=== PATIENT | female | born 1980 | race American Indian/Alaskan Native ===

== ENCOUNTER 2024-12-01 14:26 | Emergency (ER) | payer SELFPAY ==
[2024-12-01 14:45] VITALS: BP 131/83; PULSE 94; RESP 18; TEMP 37.4; O2SAT 99; BMI 34.2
--- NOTE | 2024-12-01 14:53 | XR_ITS ---
Examination: CT abdomen and pelvis without contrast. Coronal 3-D reconstructions. Sagittal 2-D reconstructions. Date and time of exam:December 01, 2024 1547 hours INDICATIONS: Onset right-sided flank pain today CTDI: vol (mGy): 7.89 DLP: (mGycm): 148 Technique: Axial images of the abdomen have been obtained, 3 mm slice thickness Intravenous contrast material has not been administered. Low dose protocols were performed. One or more of the following dose reduction techniques were used; automated exposure control, adjustment of the mA and/or KV according to patient size, use of iterative reconstruction technique. Findings: Multiple small liver cysts No splenic lesion No pancreatic or adrenal mass No renal or ureteral calculi, no hydronephrosis Aorta normal size No bowel obstruction Normal appendix No diverticulitis Anteverted uterus with low-density in the cervix which may represent cysts Bladder intact IMPRESSION: No renal or ureteral calculi, no hydronephrosis Normal appendix No bowel obstruction or diverticulitis Recommend pelvic sonography to exclude small cervical mass
--- NOTE | 2024-12-01 14:53 | PD.EDRME ---
Rapid Medical Screening Exam RME Arrival date/time: 12/01/24 14:26 44-year-old female with no known medical history presents to the emergency room with a chief complaint of right-sided flank pain that radiates down to her right groin, nausea, vomiting x 4 days I have greeted and performed a focused initial assessment of this patient. A comprehensive ED assessment and evaluation of the patient, analysis of all test results, and completion of the medical decision making process will be conducted by additional ED providers. Chief Complaint: Abdominal Pain Vital signs: Vital Signs Temperature 99.4 F 12/01/24 14:45 Pulse Rate 94 12/01/24 14:45 Respiratory Rate 18 12/01/24 14:45 Blood Pressure 131/83 H 12/01/24 14:45 Pulse Oximetry (%) 99 12/01/24 14:45 Oxygen Delivery Method Room Air 12/01/24 14:45 Vital signs reviewed by provider: Yes
[2024-12-01] MEDS: ACETAMINOPHEN 325 MG TABLET 650 MG PO (15:06)
[2024-12-01] MEDS: ONDANSETRON ODT 4 MG TABRAP PO (15:06)
[2024-12-01 15:20] LABS: Collection Type, Urine Clean Catch
[2024-12-01 15:31] LABS: Basophils % (Auto) 0 % (0-2.5); Eosinophils % (Auto) 0 % (0-10); Hematocrit 33.7 % (36.0-46.0); Hemoglobin 11.5 g/dL (12.0-16.0); Immature Granulocytes % (Auto) 0 % (0-0); Immature Granulocytes Auto 0.02 Thou/mm3 (0.00-0.00); Lymphocytes # (Auto) 0.3 Thou/mm3 (1.0-4.8); Lymphocytes % (Auto) 6 % (10-50); Mean Corpuscular HGB Conc 34.1 g/dl (31.0-37.0); Mean Corpuscular Hemoglobin 26.8 pg (25.0-35.0); Mean Corpuscular Volume 79 fL (80-100); Monocytes # (Auto) 0.5 Thou/mm3 (0.0-0.8); Monocytes % (Auto) 9 % (0-12); Neutrophils # (Auto) 4.6 Thou/mm3 (1.8-7.7); Neutrophils % (Auto) 84 % (37-80); Nucleated Red Blood Cell % 0 /100 WBC (0); Platelet Count 214 Thou/mm3 (140-440); RDW Standard Deviation 39.8 fL (36.4-46.3); Red Blood Count 4.29 Miln/mm3 (4.00-5.20); White Blood Count 5.5 Thou/mm3 (3.6-11.0)
[2024-12-01 15:39] LABS: HCG Qualitative,Urine Negative
[2024-12-01 15:41] LABS: Bacteria,Urine 1+; Bilirubin,Urine Negative (Negative); Blood,Urine Trace (Negative); Clarity,Urine Turbid (Clear/Hazy); Color,Urine Lt-Yellow (Lt Yel-Yel); Glucose, Urine Negative (Negative); Ketones,Urine 1+ (Negative); Leukocyte Esterase,Urine Negative (Negative); Nitrite,Urine Negative (Negative); PH,Urine 6.5 (5.0-7.0); Protein,Urine Trace (Neg - Trace); RBC,Urine 20 /hpf (0-3); Specific Gravity,Urine 1.021 (1.001-1.035); Squamous Epithelial Cell,Urine 20 /hpf (0-5); Urobilinogen,Urine Negative mg/dL (0.0-1.0); WBC,Urine 2 /hpf (0-5)
[2024-12-01 15:41] LABS: Alanine Aminotransferase 23 U/L (10-49); Albumin, Serum 4.3 gm/dL (3.5-5.0); Albumin/Globulin Ratio 1.6 (1.2-2.2); Alkaline Phosphatase 73 U/L (46-116); Anion Gap 6 (7-16); Aspartate Amino Transferase 23 U/L (0-34); BUN/Creatinine Ratio 10 Ratio (12-20); Bilirubin,Total 0.3 mg/dL (0.3-1.2); Blood Urea Nitrogen 6 mg/dL (9-23); Calcium 8.3 mg/dL (8.3-10.6); Calcium (Corrected) 8.3 mg/dL (8.5-10.1); Carbon Dioxide 26.8 mMol/L (20.0-31.0); Chloride 103 mMol/L (98-107); Creatinine (Component) 0.6 mg/dL (0.6-1.3); Estimated Creatinine Clearance 110.4 mL/min (>60); Globulin 2.7 gm/dL (2.3-3.5); Glucose 104 mg/dL (74-106); Lipase 30 U/L (12-53); Osmolality,Calculated 269 (275-295); Potassium 3.5 mMol/L (3.4-5.1); Sodium 136 mMol/L (136-145); eGFR > 60 See Note
--- NOTE | 2024-12-01 16:54 | EDNOTE_ITS ---
ED Abdominal Pain RME/HPI General Chief Complaint: Abdominal Pain Stated complaint: RIGHT FLANK PAIN X THURSDAY, VOMITNG , FEVER, CHILL Arrival date/time: 12/01/24 14:26 Limitations: no limitations RME / HPI RME / HPI narrative: 12/01/24 14:26 44-year-old female with no known medical history presents to the emergency room with a chief complaint of right-sided flank pain that radiates down to her right groin, nausea, vomiting x 4 days I have greeted and performed a focused initial assessment of this patient. A comprehensive ED assessment and evaluation of the patient, analysis of all test results, and completion of the medical decision making process will be conducted by additional ED providers. DR. DENISE MAIN ED EVALUATION: 44 year old female with history of asthma, s/p cholecystectomy presents to the ED for evaluation of right flank pain beginning 4 days ago and worsening in the last 3 days. Described as aching in sensation, located most to the rigth flank without radiation, rating as moderate. Accompanied by nausea and vomiting. Additionally reports she has been coughing. Patient mentioned since her gallbladder removal she is not able to eat certain foods but has not had similar pain before. Denies fevers, chills, chest pain, shortness of breath, diarrhea, constipation, or urinary symptoms. Related Data Previous Rx's ?Medication ?Instructions ?Recorded ibuprofen 600 mg tablet 600 mg PO QID PRN pain #30 t abs 02/11/18 ondansetron 4 mg disintegrating 4 mg PO QID PRN nausea and 02/11/18 tablet vomiting #10 tabs oxycodone-acetaminophen 5 mg-325 1 tab PO Q6H PRN pain #10 tabs 02/11/18 mg tablet cyclobenzaprine 10 mg tablet 10 mg PO Q8H PRN muscle s pasm / 09/21/18 pain #14 tabs meloxicam 15 mg tablet (Mobic) 15 mg PO QDAY #10 tabs 09/21/18 ibuprofen 600 mg tablet 600 mg PO Q8H PRN fever or p ain 01/23/24 #20 tabs Allergies Allergy/AdvReac Type Severity Reaction Status Date / Time No Known Allergies Allergy Verified 12/01/24 14:30 Review of Systems Review of Systems Narrative Review of Systems: GEN: No fever, no chills, no weight loss EYES: No discharge, no visual changes, no pain HEENT: No ear pain, no congestion, no sore throat PULM: No shortness of breath, + cough, no congestion CV: No chest pain, no dyspnea on exertion, no palpitations GI: +N/V, no diarrhea, +pain, no constipation : No frequency, no urgency, no dysuria MUSC/SKEL: No joint pain, no back pain SKIN: No rash NEURO: No weakness, no headache Past Medical History Past Medical History CARDIAC: Negative Cardiac Disorders or Congestive Heart Failure RESPIRATORY: Positive Asthma; Negative Chronic Obstructive Pulmonary Disease (COPD) GENITOURINARY: Negative Renal Disease ENDOCRINE: Negative Diabetes Mellitus Type 1 or Diabetes Mellitus Type 2 HEMATOLOGIC: Negative Sickle Cell Disease Social History SMOKING STATUS: Never smoker ED Exam General Limitations: Present no limitations General appearance: Present alert, in no apparent distress, obese and other (appears fatigued) Head Head exam: Present atraumatic, normocephalic and normal inspection Eye Eye exam: Present normal appearance, PERRL and EOMI ENT ENT exam: Present normal exam, normal oropharynx and mucous membranes moist Neck Neck exam: Present normal inspection, full ROM and trachea midline Chest Chest inspection: Present normal inspection and symmetric chest wall rise Respiratory Respiratory exam: Present normal lung sounds bilaterally Cardiovascular Cardiovascular exam: Present regular rate, normal rhythm and normal heart sounds Abdominal Exam Abdominal exam: Present soft and normal bowel sounds Extremities Exam Extremities exam: Present normal inspection and full ROM Back Exam Back exam: Present normal inspection and full ROM Neurological Exam Neurological exam: Present alert, oriented X3 and CN II-XII intact Psychiatric Psychiatric exam: Present normal affect and normal mood Skin Skin exam: Present warm, dry, intact and normal color Course Quality Measures none Orders Category Date Time Status CT abdomen pelvis wo con Stat Exams 12/01/24 14:53 Completed CBC Stat Lab 12/01/24 15:13 Completed CMP [Comprehensive Metabolic Panel] Stat Lab 12/01/24 15:13 Completed HCG Qualitative,Urine Stat Lab 12/01/24 15:09 Completed Lipase Stat Lab 12/01/24 15:13 Completed UA [Urinalysis] Stat Lab 12/01/24 15:09 Completed Urine Culture Stat Lab 12/01/24 15:09 Received Acetaminophen Tab [Tylenol Tab] Med 12/01/24 14:53 Discontinued 650 mg PO X1 ONE Ondansetron Odt [Zofran Odt] Med 12/01/24 14:55 Discontinued 4 mg PO X1 ONE Vital Signs Vital signs: Vital Signs Temperature 99.4 F 12/01/24 14:45 Pulse Rate 94 12/01/24 14:45 Respiratory Rate 18 12/01/24 14:45 Blood Pressure 131/83 H 12/01/24 14:45 Pulse Oximetry (%) 99 12/01/24 14:45 Oxygen Delivery Method Room Air 12/01/24 14:45 Pulse ox is 99% on room air which is adequate. Abdominal Pain MDM MDM Narrative MDM Narrative:: Rochelle Mckenzie am scribing for and in the presence of Dr. Denise. Patient data External records reviewed:: [facility] previous records (I reviewed ED visit on 01/23/2024 ) Clinical information provided by:: patient Social determinants that could affect healthcare access:: none Patient has the following chronic illnesses:: asthma, s/p cholecystectomy How is presenting disease/condition affected by chronic disease/condition?: exacerbated by Evaluation data The following diagnostics were reviewed and interpreted by me:: lab results and radiology exam(s) Lab and/or radiology exams considered but not ordered:: None Interpretation Summary: Ordering Physician: Franco Fletcher Date of Service: 12/01/24 Procedure(s): CT abdomen pelvis wo con Accession Number(s): [id number] cc: Franco Fletcher; Harish Jones MD; NO PRIMARY/FAMILY,PHYSICIAN~ Examination: CT abdomen and pelvis without contrast. Coronal 3-D reconstructions. Sagittal 2-D reconstructions. Date and time of exam:December 01, 2024 1547 hours INDICATIONS: Onset right-sided flank pain today CTDI: vol (mGy): 7.89 DLP: (mGycm): 148 Technique: Axial images of the abdomen have been obtained, 3 mm slice thickness Intravenous contrast material has not been administered. Low dose protocols were performed. One or more of the following dose reduction techniques were used; automated exposure control, adjustment of the mA and/or KV according to patient size, use of iterative reconstruction technique. Findings: Multiple small liver cysts No splenic lesion No pancreatic or adrenal mass No renal or ureteral calculi, no hydronephrosis Aorta normal size No bowel obstruction Normal appendix No diverticulitis Anteverted uterus with low-density in the cervix which may represent cysts Bladder intact IMPRESSION: No renal or ureteral calculi, no hydronephrosis Normal appendix No bowel obstruction or diverticulitis Recommend pelvic sonography to exclude small cervical mass Dictated By: Harish Jones MD Signed By: <Electronically signed by Harish Jones MD in OV> 12/01/24 1603 Medications / Prescriptions Medications or Prescriptions considered but not ordered:: None Medication administrations:: Medication Administration History Discontinued Medications Acetaminophen (Acetaminophen 325 Mg Tablet) 650 mg PO X1 ONE Stop: 12/01/24 14:54 Last Admin: 12/01/24 15:06 Dose: 650 mg Documented By: Ondansetron HCl (Ondansetron Odt 4 Mg Tabrap) 4 mg PO X1 ONE; Protocol Stop: 12/01/24 14:56 Last Admin: 12/01/24 15:06 Dose: 4 mg Documented By: See above Consultations Consultation(s) initiated? (list below): No Diagnosis Differential diagnosis abdominal pain: abdominal pain, calculus of kidney, constipation and gastroenteritis Most likely diagnosis given after review of the tests above:: Gastroenteritis Admission Indicated Admission indicated?: not indicated Admission Request Was there a request for admission?: No Disposition Plan Disposition Plan: Discharge Discharge Attestation Discharge Attestation: The patient and all family members were given an opportunity to ask questions and understood the discharge instructions. Discharge instructions specifically effects, indications for sooner follow up or return to the emergency department, and the expected course of current diagnosis. Patient condition: Stable Discharge Plan Plan Patient Disposition: HOME (Self Care) Prescriptions/Referrals Prescriptions/Med Rec: No Action cyclobenzaprine 10 mg tablet 10 mg PO Q8H PRN (Reason: muscle spasm / pain) Qty: 14 0RF meloxicam [Mobic] 15 mg tablet 15 mg PO QDAY Qty: 10 0RF ondansetron 4 mg tablet,disintegrating 4 mg PO QID PRN (Reason: nausea and vomiting) Qty: 10 0RF ibuprofen 600 mg tablet 600 mg PO QID PRN (Reason: pain) Qty: 30 0RF oxycodone-acetaminophen 5-325 mg tablet 1 tab PO Q6H MDD 4 PRN (Reason: pain) Qty: 10 0RF ibuprofen 600 mg tablet 600 mg PO Q8H PRN (Reason: fever or pain) Qty: 20 0RF Referrals: No Primary/Family,Physician [Primary Care Provider] - In 1 week Problem List Clinical Impression: Gastroenteritis Patient/Caregiver Discharge Instructions Education Materials: ED Gastroenteritis, Noninfectious Additional Instructions: Follow up with your PMD within 2-3 days for reassessment. Return if you develop any new or worsening symptoms. Print Language: Belarusian Stand Alone Forms: [facility] Award Info., Patient Portal Info Letter
== END 2024-12-01 18:05 | disposition home or self-care (01) ==
PROVIDERS: Nurse Practitioner Family; Emergency Provider Family Medicine
DX: K52.9 Noninfective gastroenteritis and colitis, unspecified (principal); R93.89 Abnormal findings on diagnostic imaging of other specified body structures
CPT/HCPCS: 36415; 74176; 80053; 81001; 81025; 83690; 85025; 87086; 99284; Q0162; A9270

== ENCOUNTER 2024-12-09 03:09 | Emergency (ER) | payer OTHER, SELFPAY ==
[2024-12-09 03:10] VITALS: BMI 34.0
--- NOTE | 2024-12-09 03:17 | EDNOTE_ITS ---
ED Headache RME/HPI General Chief Complaint: Headache Stated Complaint: HEADACHE FOR 4 DAYS, CHEST THIGHTNESS Arrival date/time: 12/09/24 03:09 RME / HPI RME / HPI Narrative: This section includes all my notes and documentations, including HPI, PE, and ED course. Kurt Mackey MD HPI: 44yo female here with multiple symptoms. She reports about 2-week history of worsening cough, productive cough, purulent sputum, and dyspnea. No fever. In the past few days, she reports severe headache and vomiting and upper abdominal pain. No other complaints. ROS: All negative except as documented in HPI. Physical Exam: General: Alert and oriented. In severe pain. Eyes: Conjunctivae and lids clear. PERRL. EOMI. ENT: No nasal congestion. Pharynx normal. TM normal bilaterally. Neck: Supple. Heart: RRR. Lungs: No respiratory distress. Moderately decreased air movement with wheezing. Abdomen: Soft with epigastric tenderness.. Normal bowel sounds. No distension. No rebound or guarding. Back: No CVA tenderness. Skin: Warm and dry. Neuro: Alert and oriented X 3. Cranial nerves II to XII grossly normal. No peripheral motor deficits. I reviewed all diagnostic test results. My interpretation of the EKG is sinus rhythm with no acute ST-T changes. Blood tests and urine tests unremarkable. COVID/influenza negative. Reports for GB ultrasound and head CT and chest/abdomen/pelvis CT reports pending. Treatment here included IV fluid, Zofran, Solu-Medrol, DuoNeb, and two Tylenol #3. At 6 AM on 12/08/2024, the care of the patient was transferred to Dr. FAM. Kurt Mackey MD Related Data Previous Rx's ?Medication ?Instructions ?Recorded ibuprofen 600 mg tablet 600 mg PO QID PRN pain #30 t abs 02/11/18 ondansetron 4 mg disintegrating 4 mg PO QID PRN nausea and 02/11/18 tablet vomiting #10 tabs oxycodone-acetaminophen 5 mg-325 1 tab PO Q6H PRN pain #10 tabs 02/11/18 mg tablet cyclobenzaprine 10 mg tablet 10 mg PO Q8H PRN muscle s pasm / 09/21/18 pain #14 tabs meloxicam 15 mg tablet (Mobic) 15 mg PO QDAY #10 tabs 09/21/18 ibuprofen 600 mg tablet 600 mg PO Q8H PRN fever or p ain 01/23/24 #20 tabs Allergies Allergy/AdvReac Type Severity Reaction Status Date / Time No Known Allergies Allergy Verified 12/09/24 03:10 Review of Systems Review of Systems Systems Reviewed: All systems reviewed, normal except as documented Past Medical History Past Medical History CARDIAC: Negative Cardiac Disorders or Congestive Heart Failure RESPIRATORY: Positive Asthma; Negative Chronic Obstructive Pulmonary Disease (COPD) GENITOURINARY: Negative Renal Disease ENDOCRINE: Negative Diabetes Mellitus Type 1 or Diabetes Mellitus Type 2 HEMATOLOGIC: Negative Sickle Cell Disease Social History SMOKING STATUS: Never smoker ED Exam Narrative Physical exam: As noted in HPI. Course Quality Measures none Orders Category Date Time Status Bedside COVID-19 Antigen Test NOW Care 12/09/24 03:19 Active Bedside Influenza A&B Antigen Test NOW Care 12/09/24 03:19 Completed EKG (ED ONLY) *Do not use* NOW Care 12/09/24 03:19 Completed Saline [Insert IV] NOW Care 12/09/24 03:[address] chest abdomen pelvis wo Stat Exams 12/09/24 03:[address] head/brain wo con Stat Exams 12/09/24 03:19 Ordered EKG (ED Only) Stat Exams 12/09/24 03:19 Draft US gall bladder Stat Exams 12/09/24 03:48 Taken Amylase Stat Lab 12/09/24 03:27 Completed Bilirubin,Direct Stat Lab 12/09/24 03:27 Completed CBC Stat Lab 12/09/24 03:27 Completed CMP [Comprehensive Metabolic Panel] Stat Lab 12/09/24 03:27 Completed Free T4 (Free Thyroxine) Stat Lab 12/09/24 03:27 Completed HCG Qualitative,Urine Stat Lab 12/09/24 03:28 Completed HCG,Qualitative Serum Stat Lab 12/09/24 03:27 Completed Lipase Stat Lab 12/09/24 03:27 Completed Magnesium Stat Lab 12/09/24 03:27 Completed TSH [Thyroid Stimulating Hormone] Stat Lab 12/09/24 03:27 Completed Troponin I Stat Lab 12/09/24 03:27 Completed UA, C/S IF [Urinalysis, C/S if Indicated] Stat Lab 12/09/24 03:28 Completed ACETAMINOPHEN w/COD 300-30 [Tylenol w/Cod #3] Med 12/09/24 03:20 Discontinued 2 tab PO X1 ONE Albuterol/Ipratr Rt Trini [Duoneb Rt Trini] Med 12/09/24 03:20 Discontinued 3 ml INH X1 ONE MethylPREDNISolone.* [SoluMEDROL Inj] Med 12/09/24 03:37 Discontinued 125 mg IVP X1 ONE Ondansetron Inj [Zofran Inj] Med 12/09/24 03:38 Discontinued 4 mg IV X1 ONE Ondansetron Odt [Zofran Odt] Med 12/09/24 03:20 Discontinued 4 mg PO X1 ONE Sodium Chloride 0.9% 1000 ml [Ns] 1,000 ml Med 12/09/24 03:37 Discontinued IV 999 mls/hr predniSONE Med 12/09/24 03:20 Discontinued 60 mg PO X1 ONE Vital Signs Vital signs: Vital Signs Temperature 98.4 F 12/09/24 03:18 Pulse Rate 64 12/09/24 03:18 Respiratory Rate 19 12/09/24 03:18 Blood Pressure 166/83 H 12/09/24 03:18 Pulse Oximetry (%) 99 12/09/24 03:18 Oxygen Delivery Method Room Air 12/09/24 03:18 Headache MDM Narrative MDM Narrative:: Scribe Attestation: 12/09/24 - I, Lilliam Tran am scribing for and in the presence of Dr. Mackey. 44yo female here with multiple symptoms. She reports about 2-week history of worsening cough, productive cough, purulent sputum, and dyspnea. No fever. In the past few days, she reports severe headache and vomiting and upper abdominal pain. No other complaints. Patient data External records reviewed:: [facility] previous records (Per chart review, patient was seen here on 12/01/24 for gastroenteritis.) Clinical information provided by:: patient Social determinants that could affect healthcare access:: none Patient has the following chronic illnesses:: asthma How is presenting disease/condition affected by chronic disease/condition?: uneffected by Evaluation data The following diagnostics were reviewed and interpreted by me:: lab results, radiology exam(s) and EKG tracing(s) (My interpretation of the EKG is: Sinus rhythm (61 bpm) with no acute ST-T changes. Kurt Mackey MD) Lab and/or radiology exams considered but not ordered:: none Interpretation Summary: Complete diagnostic test results pending. Medications / Prescriptions Medications or Prescriptions considered but not ordered:: none Medication administrations:: Medication Administration History Discontinued Medications Acetaminophen/Codeine Phosphate (Acetaminophen W/Cod 300-30 Tablet) 2 tab PO X1 ONE Stop: 12/09/24 03:21 Last Admin: 12/09/24 04:57 Dose: 2 tab Documented By: THALIA Albuterol/Ipratropium (Albuterol/Ipratropium (Duoneb) Rt Trini 3 Ml Nebu) 3 ml INH X1 ONE Stop: 12/09/24 03:21 Last Admin: 12/09/24 03:55 Dose: 3 ml Documented By: ZIYAD Sodium Chloride (Ns) 1,000 mls @ 999 mls/hr IV .Q1H1M ONE Stop: 12/09/24 04:37 Last Infusion: 12/09/24 05:04 Dose: Infused Documented By: Admin: 12/09/24 04:03 Dose: 999 mls/hr Documented By: THALIA Methylprednisolone Sodium Succinate (Methylprednisolone Sod Succ 62.5 Mg/Ml 2ml Vial) 125 mg IVP X1 ONE Stop: 12/09/24 03:38 Last Admin: 12/09/24 04:03 Dose: 125 mg Documented By: THALIA Ondansetron HCl (Ondansetron Odt 4 Mg Tabrap) 4 mg PO X1 ONE; Protocol Stop: 12/09/24 03:21 Last Admin: 12/09/24 04:24 Dose: Not Given Documented By: EF Non-Admin Reason: Cancelled by Provider Ondansetron HCl (Ondansetron Inj 2 Mg/Ml Inj 2 Ml) 4 mg IV X1 ONE; Protocol Stop: 12/09/24 03:39 Last Admin: 12/09/24 04:04 Dose: 4 mg Documented By: EF Prednisone (Prednisone 20 Mg Tablet) 60 mg PO X1 ONE Stop: 12/09/24 03:21 Last Admin: 12/09/24 04:24 Dose: Not Given Documented By: EF Non-Admin Reason: Cancelled by Provider NS, Solumedrol, Zofran, Tylenol with Codeine, Duoneb Consultations Consultation(s) initiated? (list below): No Diagnosis Differential diagnosis headache: migraine, tension headache, subarachnoid hemorrhage, headache, postconcussion syndrome and other (COVID, influenza, pneumonia, biliary colic, GERD, PUD, gastritis) Most likely diagnosis given after review of the tests above:: Complete diagnostic test results pending. Admission Indicated Admission indicated?: not indicated Explain why admission is indicated or not indicated:: Complete diagnostic test results pending. Admission Request Was there a request for admission?: No Disposition Plan Disposition Plan: other (specify) (Care of the patient was transferred to Dr. FAM.) Discharge Plan Prescriptions/Referrals Prescriptions/Med Rec: No Action cyclobenzaprine 10 mg tablet 10 mg PO Q8H PRN (Reason: muscle spasm / pain) Qty: 14 0RF meloxicam [Mobic] 15 mg tablet 15 mg PO QDAY Qty: 10 0RF ondansetron 4 mg tablet,disintegrating 4 mg PO QID PRN (Reason: nausea and vomiting) Qty: 10 0RF ibuprofen 600 mg tablet 600 mg PO QID PRN (Reason: pain) Qty: 30 0RF oxycodone-acetaminophen 5-325 mg tablet 1 tab PO Q6H MDD 4 PRN (Reason: pain) Qty: 10 0RF ibuprofen 600 mg tablet 600 mg PO Q8H PRN (Reason: fever or pain) Qty: 20 0RF Referrals: No Primary/Family,Physician [Primary Care Provider] - In 1 week Problem List Clinical Impression: Headache, Cough, Abdominal pain Patient/Caregiver Discharge Instructions Print Language: Mohawk
[2024-12-09 03:18] VITALS: BP 166/83; PULSE 64; RESP 19; TEMP 36.9; O2SAT 99
--- NOTE | 2024-12-09 03:19 | EKG_ITS ---
[facility] (Formerly [facility])[3] Test Date: 2024-12-09 Pat Name: KATI NAJERA Department: Room: - Gender: Female Product Advisor: : 1980 Requested By: Kurt Guido Order Number: [id number] Reading MD: Kurt Guido Measurements Intervals [place] Rate: 61 P: 59 WV: 139 QRS: 32 QRSD: 78 T: 48 QT: 463 QTc: 467 Interpretive Statements SINUS RHYTHM No previous ECG available for comparison /store/S0/[id number]/ecg/[id number].pdf
--- NOTE | 2024-12-09 03:19 | XR_ITS ---
Examination: CT chest, without intravenous contrast. CT abdomen, without intravenous contrast. CT pelvis, without intravenous contrast. 2-D sagittal and coronal reconstructions. 3-D reconstructions. Date and time of exam:December 09, 2024 0516 hours INDICATIONS: Shortness of breath generalized abdominal pain today CTDI vol (mgy) 16.5 DLP (MGycm)1000 Technique: Multiple CT images, 3.0 mm slice thickness, obtained chest, abdomen, pelvis, with the high-resolution 64 slice scanner.. Sagittal and coronal 2-D reconstructions are obtained. 3-D reconstructions Low dose protocols were performed. One or more of the following dose reduction techniques were used; automated exposure control, adjustment of the mA and/or KV according to patient size, use of iterative reconstruction technique. Findings: 14 mm right thyroid nodule No thoracic aortic aneurysmal dilatation Pulmonary artery segments are not enlarged. No paratracheal tracheobronchial or bronchopulmonary adenopathy No pneumonia or pulmonary edema Calcified granuloma in the right upper lobe Small liver cysts Absent gallbladder No pancreatic or adrenal mass No renal or ureteral calculi, no hydronephrosis Normal appendix 33 mm right adnexal cyst Anteverted uterus with thickened endometrial stripe, small uterine area of probable fibroid degeneration Urinary bladder is intact IMPRESSION: 14 mm right thyroid nodule, consider dedicated thyroid sonography follow-up No pneumonia, pulmonary edema or pleural disease Recommend hepatic sonography to confirm hepatic cysts 33 mm right adnexal cyst, recommend pelvic sonography follow-up
--- NOTE | 2024-12-09 03:19 | XR_ITS ---
Examination: CT brain head without contrast. 2-D sagittal coronal reconstructions Date and time of exam:December 09, 2024 0515 hours INDICATIONS: Onset severe headache today since CTDI: vol (mGy):52 DLP: (mGycm):1059 Technique: Multiple CT axial sections of the brain have been obtained, 5 mm slice thickness. Contrast has not been administered. 2-D sagittal, coronal reconstructions have been obtained Low dose protocols were performed. One or more of the following dose reduction techniques were used; automated exposure control, adjustment of the mA and/or KV according to patient size, use of iterative reconstruction technique. Findings: No significant ventricular enlargement. Intra-axial or extra-axial hemorrhage density is not seen. No mass effect or midline shift Basal cisterns are not remarkable. Fourth ventricle is midline. Cranial vault intact. Impression: Negative for acute hemorrhage, mass effect or midline shift
[2024-12-09 03:41] LABS: Basophils % (Auto) 1 % (0-2.5); Eosinophils # (Auto) 0.1 Thou/mm3 (0.0-0.5); Eosinophils % (Auto) 1 % (0-10); Hemoglobin 12.1 g/dL (12.0-16.0); Immature Granulocytes % (Auto) 0 % (0-0); Immature Granulocytes Auto 0.02 Thou/mm3 (0.00-0.00); Lymphocytes % (Auto) 30 % (10-50); Mean Corpuscular HGB Conc 32.7 g/dl (31.0-37.0); Mean Corpuscular Hemoglobin 26.2 pg (25.0-35.0); Mean Corpuscular Volume 80 fL (80-100); Monocytes # (Auto) 0.4 Thou/mm3 (0.0-0.8); Monocytes % (Auto) 6 % (0-12); Neutrophils # (Auto) 4.3 Thou/mm3 (1.8-7.7); Neutrophils % (Auto) 63 % (37-80); Nucleated Red Blood Cell % 0 /100 WBC (0); Platelet Count 349 Thou/mm3 (140-440); RDW Standard Deviation 40.3 fL (36.4-46.3); Red Blood Count 4.61 Miln/mm3 (4.00-5.20); White Blood Count 6.8 Thou/mm3 (3.6-11.0)
[2024-12-09 03:42] LABS: Collection Type, Urine Clean Catch
[2024-12-09 03:48] LABS: Bilirubin,Urine Negative (Negative); Blood,Urine Negative (Negative); Clarity,Urine Clear (Clear/Hazy); Color,Urine Lt-Yellow (Lt Yel-Yel); Culture Indicated,Urine Not Indicated; Glucose, Urine Trace (Negative); Hyaline Casts,Urine < 1 /hpf (0-1); Ketones,Urine Negative (Negative); Leukocyte Esterase,Urine Negative (Negative); Nitrite,Urine Negative (Negative); Protein,Urine Negative (Neg - Trace); RBC,Urine 3 /hpf (0-3); Specific Gravity,Urine 1.016 (1.001-1.035); Squamous Epithelial Cell,Urine 1 /hpf (0-5); Urobilinogen,Urine Negative mg/dL (0.0-1.0); WBC,Urine 1 /hpf (0-5)
--- NOTE | 2024-12-09 03:48 | XR_ITS ---
Examination: Abdomen sonogram, Limited Date and time of exam: December 09, 2024 0438 hours Technique: Real-time head scale transabdominal sonographic images of the upper abdomen obtained. Findings: Absent gallbladder Normal common bile duct 0.5 cm Pancreatic head 2.1 cm Liver 15.3 cm Fatty liver Normal hepatopedal portal venous flow Patent IVC IMPRESSION: Normal common bile duct Fatty liver
[2024-12-09] MEDS: ALBUTEROL/IPRATROPIUM (Duoneb) RT SOL 3 ML NEBU INH (03:55)
[2024-12-09 03:56] LABS: HCG Qualitative,Urine Negative
[2024-12-09 03:59] VITALS: PULSE 65; RESP 20; O2SAT 100
[2024-12-09 03:59] LABS: Alanine Aminotransferase 27 U/L (10-49); Albumin, Serum 4.2 gm/dL (3.5-5.0); Albumin/Globulin Ratio 1.4 (1.2-2.2); Alkaline Phosphatase 90 U/L (46-116); Amylase 45 U/L (30-118); Anion Gap 9 (7-16); Aspartate Amino Transferase 22 U/L (0-34); BUN/Creatinine Ratio 12 Ratio (12-20); Bilirubin,Direct 0.1 mg/dL (0.0-0.3); Bilirubin,Total 0.5 mg/dL (0.3-1.2); Blood Urea Nitrogen 7 mg/dL (9-23); Carbon Dioxide 24.6 mMol/L (20.0-31.0); Chloride 107 mMol/L (98-107); Creatinine (Component) 0.6 mg/dL (0.6-1.3); Free T4 (Free Thyroxine) 1.23 ng/dL (0.89-1.76); Glucose 136 mg/dL (74-106); Lipase 30 U/L (12-53); Magnesium 2.4 mg/dL (1.6-2.6); Osmolality,Calculated 281 (275-295); Potassium 3.8 mMol/L (3.4-5.1); Sodium 141 mMol/L (136-145); Total Protein 7.2 gm/dL (5.7-8.2); Troponin I < 0.002 ng/mL (0.0-0.045); eGFR > 60 See Note
[2024-12-09] MEDS: MethylPREDNISolone SOD SUCC 62.5 MG/ML 2ML VIAL 125 MG IVP (04:03)
[2024-12-09] MEDS: SODIUM CHLORIDE 0.9% 1000 ML 1,000 ML 999 ML IV (04:03)
[2024-12-09] MEDS: ONDANSETRON INJ 2 MG/ML INJ 2 ML 4 MG IV (04:04)
[2024-12-09 04:54] LABS: HCG,Qualitative Serum Negative
[2024-12-09] MEDS: ACETAMINOPHEN w/COD 300-30 TABLET 2 TAB PO (04:57)
[2024-12-09 05:34] VITALS: BP 155/77; PULSE 68; RESP 18; TEMP 36.8; O2SAT 100
--- NOTE | 2024-12-09 05:41 | PRELIM_ITS ---
Gallbladderultrasound. December 09, 2024 0438 hours Clinical history: RUQ tenderness Technique: Grayscale and color flow images of the right upper quadrant are provided. Hepatic and portal veins were also imaged with color flow images. Comparison:No prior study is available for comparison. Findings: The liver demonstrates mild coarseechogenicity. There are two cysts in the right hepatic lobe measuring 2.5 and 1.6 cm.No intrahepatic biliary ductal dilatation. The gallbladder is surgically absent.The common bile duct is normal in caliber at 5 mm. The main portal vein is patent and demonstrates hepatopetal flow.The pancreas is unremarkable to the extent visualized. Impression: Multiple hepatic cysts. Report Electronically Signed By: Yoselin Ruggiero 12/09/2024 5:40:42 AM [EST]
--- NOTE | 2024-12-09 05:55 | PRELIM_ITS ---
CT scan of the head without intravenous contrast (axial sections with sagittal and coronal reformats). December 09, 2024 0514 hours Clinical History: severe headache Findings: No evidence of intracranial hemorrhage, mass effect or midline shift. The ventricles and CSF spaces are unremarkable. The calvarium is unremarkable. The mastoid air cells and the visualized paranasal sinuses are clear. Impression: No evidence of intracranial hemorrhage, mass effect or midline shift. Report Electronically Signed By: Yoselin Ruggiero 12/09/2024 5:53:56 AM [EST]
[2024-12-09] MEDS: PROMETHAZINE INJ 12.5 MG in SODIUM CHLORIDE 0.9% 50 ML 2.5 MG IV (06:36)
[2024-12-09 06:44] VITALS: BP 140/90; PULSE 74; RESP 15; O2SAT 98
--- NOTE | 2024-12-09 07:04 | PRELIM_ITS ---
CT scan of the chest, abdomen and pelvis without intravenous contrast (axial sections with sagittal and coronal reformats) December 09, 2024 0516 hours Clinical History: sob cp abd pain Comparison: No prior study is available for comparison. Findings: A 1.2cm calcification is noted in the superior segment of the right lower lung. A 3mm nodule is noted in the right upper lobe, likely nonspecific. Otherwise, the lungs are clear. There is no pleural effusion or pneumothorax. The aorta is unremarkable on this noncontrast study. No evidence of mediastinal mass or lymphadenopathy. There is no pericardial effusion. There are multiple well-defined hypodense lesions in the liver measuring up to 9.5mm. The liver otherwise is unremarkable on this noncontrast study. The gallbladder is surgically absent. The common bile duct is unremarkable. The spleen, pancreas, adrenals and kidneys are unremarkable on this noncontrast study. No evidence of bowel obstruction. The appendix is not definitively visualized; however, there is no evidence of inflammatory process in the right lower quadrant to suggest appendicitis. The urinary bladder is unremarkable. A 1cm noncalcified fibroid is noted in the uterine fundus. There is small amount of fluid in the uterine cavity. There are multiple cystic lesions in the cervix, likely representing Nabothian cysts. There is a homogeneous cyst in the right ovary measuring 3.4cm. The left ovary appears unremarkable. There is no free fluid or free air. The osseous structures are unremarkable. Impression: No evidence of acute intrathoracic, intraabdominal or pelvic pathology on this noncontrast study. Multiple well-defined hypodense lesions in the liver measuring up to 9.5mm. Recommend follow-up if indicated. Uterine fibroid. Free fluid in the uterine cavity. Nabothian cysts in the cervix. Recommend further evaluation with ultrasound. Other findings as described above. Report Electronically Signed By: Yoselin Ruggiero 12/09/2024 7:02:56 AM [EST]
[2024-12-09] MEDS: KETOROLAC INJ 30 MG/ML VIAL 15 MG IVP (07:35)
[2024-12-09 07:42] VITALS: BP 146/84; PULSE 80; RESP 19; TEMP 36.6; O2SAT 100
[2024-12-09 10:37] VITALS: BP 135/86; PULSE 77; RESP 18; TEMP 36.7; O2SAT 99
--- NOTE | 2024-12-09 10:50 | EDNOTE_ITS ---
<Statement entered by Kaela August MD - 12/20/24 06:19> As co-signing physician, I was present and available for consult prn. I concur with the plan and care as documented by the midlevel provider. Emergency Room Addendum Addendum Narrative: 0600: Care assumed from Dr. Mackey, the previous shift emergency physician. Past medical, surgical, social and family history reviewed. Vitals and home medications reviewed. I will assume the care of the patient at this time, pend ing radiology reports. Please refer to the emergency department record for history and examination from initial visit.?The following addendum documentation note is intended to reflect any pending information, findings, or radiology results not included in the patient?s initial chart. 1000: Patient reports feeling improved at this time. Patient remains clinically stable throughout the emergency department visit. We reviewed all the results, analysis, and treatment plans. Patient is amenable to discharge. Strict return precautions were outlined. Patient was discharged in stable condition. RADIOLOGY Ordering Physician: Kurt Mackey MD Date of Service: 12/09/24 Procedure(s): CT chest abdomen pelvis wo Accession Number(s): [id number] cc: Kurt Mackey MD; Harish Jones MD; NO PRIMARY/FAMILY,PHYSICIAN~ Examination: CT chest, without intravenous contrast. CT abdomen, without intravenous contrast. CT pelvis, without intravenous contrast. 2-D sagittal and coronal reconstructions. 3-D reconstructions. Date and time of exam:December 09, 2024 0516 hours INDICATIONS: Shortness of breath generalized abdominal pain today CTDI vol (mgy) 16.5 DLP (MGycm)1000 Technique: Multiple CT images, 3.0 mm slice thickness, obtained chest, abdomen, pelvis, with the high-resolution 64 slice scanner.. Sagittal and coronal 2-D reconstructions are obtained. 3-D reconstructions Low dose protocols were performed. One or more of the following dose reduction techniques were used; automated exposure control, adjustment of the mA and/or KV according to patient size, use of iterative reconstruction technique. Findings: 14 mm right thyroid nodule No thoracic aortic aneurysmal dilatation Pulmonary artery segments are not enlarged. No paratracheal tracheobronchial or bronchopulmonary adenopathy No pneumonia or pulmonary edema Calcified granuloma in the right upper lobe Small liver cysts Absent gallbladder No pancreatic or adrenal mass No renal or ureteral calculi, no hydronephrosis Normal appendix 33 mm right adnexal cyst Anteverted uterus with thickened endometrial stripe, small uterine area of probable fibroid degeneration Urinary bladder is intact IMPRESSION: 14 mm right thyroid nodule, consider dedicated thyroid sonography follow-up No pneumonia, pulmonary edema or pleural disease Recommend hepatic sonography to confirm hepatic cysts 33 mm right adnexal cyst, recommend pelvic sonography follow-up Dictated By: Harish Jones MD Signed By: <Electronically signed by Harish Jones MD in [place]>12/09/24 0737 ====== Ordering Physician: Kurt Mackey MD Date of Service: 12/09/24 Procedure(s): CT head/brain wo [facility] Accession Number(s): [id number] cc: Kurt Mackey MD; Harish Jones MD; NO PRIMARY/FAMILY,PHYSICIAN~ Examination: CT brain head without contrast. 2-D sagittal coronal reconstructions Date and time of exam:December 09, 2024 0515 hours INDICATIONS: Onset severe headache today since CTDI: vol (mGy):52 DLP: (mGycm):1059 Technique: Multiple CT axial sections of the brain have been obtained, 5 mm slice thickness. Contrast has not been administered. 2-D sagittal, coronal reconstructions have been obtained Low dose protocols were performed. One or more of the following dose reduction techniques were used; automated exposure control, adjustment of the mA and/or KV according to patient size, use of iterative reconstruction technique. Findings: No significant ventricular enlargement. Intra-axial or extra-axial hemorrhage density is not seen. No mass effect or midline shift Basal cisterns are not remarkable. Fourth ventricle is midline. Cranial vault intact. Impression: Negative for acute hemorrhage, mass effect or midline shift Dictated By: Harish Jones MD Signed By: <Electronically signed by Harish Jones MD in [place]>12/09/24 0714 ====== Ordering Physician: Kurt Mackey MD Date of Service: 12/09/24 Procedure(s): US gall bladder Accession Number(s): [id number] cc: Kurt Mackey MD; Harish Jones MD; NO PRIMARY/FAMILY,PHYSICIAN~ Examination: Abdomen sonogram, Limited Date and time of exam: December 09, 2024 0438 hours Technique: Real-time head scale transabdominal sonographic images of the upper abdomen obtained. Findings: Absent gallbladder Normal common bile duct 0.5 cm Pancreatic head 2.1 cm Liver 15.3 cm Fatty liver Normal hepatopedal portal venous flow Patent IVC IMPRESSION: Normal common bile duct Fatty liver Dictated By: Harish Jones MD Signed By: <Electronically signed by Harish Jones MD in [place]> 12/09/24 0922
== END 2024-12-09 10:37 | disposition home or self-care (01) ==
PROVIDERS: Emergency Medicine; Emergency Provider Emergency Medicine
DX: R51.9 Headache, unspecified (principal); R10.84 Generalized abdominal pain; E04.1 Nontoxic single thyroid nodule; K76.89 Other specified diseases of liver; K76.0 Fatty (change of) liver, not elsewhere classified
CPT/HCPCS: 36415; 70450; 71250; 74176; 76705; 80053; 81001; 81025; 82150; 82248; 83690; 83735; 84439; 84443; 84484; 84703; 85025; 87400; 87811; 93005; 94640; 96361; 96365; 96375; 99284; A9270; J1885; J2405; J2550; J2919; J7030

== ENCOUNTER → 2024-12-26 | Outpatient (CLI) | payer OTHER, SELFPAY ==
[2024-12-26 10:23] LABS: Basophils % (Auto) 0 % (0-2.5); Eosinophils # (Auto) 0.1 Thou/mm3 (0.0-0.5); Eosinophils % (Auto) 2 % (0-10); Hematocrit 34.4 % (36.0-46.0); Hemoglobin 11.1 g/dL (12.0-16.0); Immature Granulocytes % (Auto) 1 % (0-0); Immature Granulocytes Auto 0.04 Thou/mm3 (0.00-0.00); Lymphocytes # (Auto) 1.9 Thou/mm3 (1.0-4.8); Lymphocytes % (Auto) 27 % (10-50); Mean Corpuscular HGB Conc 32.3 g/dl (31.0-37.0); Mean Corpuscular Hemoglobin 26.3 pg (25.0-35.0); Mean Corpuscular Volume 82 fL (80-100); Monocytes # (Auto) 0.5 Thou/mm3 (0.0-0.8); Monocytes % (Auto) 7 % (0-12); Neutrophils # (Auto) 4.4 Thou/mm3 (1.8-7.7); Neutrophils % (Auto) 63 % (37-80); Nucleated Red Blood Cell % 0 /100 WBC (0); Platelet Count 351 Thou/mm3 (140-440); RDW Standard Deviation 45.1 fL (36.4-46.3); Red Blood Count 4.22 Miln/mm3 (4.00-5.20); White Blood Count 6.9 Thou/mm3 (3.6-11.0)
[2024-12-26 10:43] LABS: Alanine Aminotransferase 20 U/L (10-49); Albumin/Globulin Ratio 1.7 (1.2-2.2); Alkaline Phosphatase 52 U/L (46-116); Anion Gap 11 (7-16); Aspartate Amino Transferase 18 U/L (0-34); BUN/Creatinine Ratio 15 Ratio (12-20); Bilirubin,Total 0.3 mg/dL (0.3-1.2); Blood Urea Nitrogen 9 mg/dL (9-23); Calcium 8.5 mg/dL (8.3-10.6); Calcium (Corrected) 8.5 mg/dL (8.5-10.1); Carbon Dioxide 25.7 mMol/L (20.0-31.0); Cardiac Risk Estimate 5.8 RATIO (3.7-5.6); Chloride 105 mMol/L (98-107); Cholesterol 214 mg/dL (132-200); Creatinine (Component) 0.6 mg/dL (0.6-1.3); Free T3 3.3 pg/mL (2.3-4.2); Free T4 (Free Thyroxine) 1.14 ng/dL (0.89-1.76); Globulin 2.3 gm/dL (2.3-3.5); Glucose 87 mg/dL (74-106); HDL Cholesterol 37 mg/dL (40-60); LDL Cholesterol,Calculated 124 mg/dL (0-130); Osmolality,Calculated 280 (275-295); Sodium 142 mMol/L (136-145); Thyroid Stimulating Hormone 0.78 uIU/mL (0.55-4.78); Total Protein 6.3 gm/dL (5.7-8.2); Triglycerides 265 mg/dL (30-150); eGFR > 60 See Note
[2024-12-26 11:08] LABS: Glucose Estimated Average 103 mg/dL (80-131); Hemoglobin A1C 5.2 % Hgb (4.8-6.0)
== END | disposition home or self-care (01) ==
LOC: COPL 09:06
PROVIDERS: PCP Family Medicine; Referring Provider Nurse Practitioner Family; Visit Provider Nurse Practitioner Family
DX: Z13.1 Encounter for screening for diabetes mellitus (principal); Z13.29 Encounter for screening for other suspected endocrine disorder; Z13.220 Encounter for screening for lipoid disorders
CPT/HCPCS: 36415; 80053; 80061; 83036; 84439; 84443; 84481; 85025

== ENCOUNTER → 2025-01-30 | Outpatient (CLI) | payer OTHER, SELFPAY ==
--- NOTE | 2025-01-30 | XR_ITS ---
Examination: Pelvic ultrasound, transabdominal, complete Technique: Transabdominal ultrasound of the pelvis performed using grayscale imaging Date and time of exam: January 30, 2025 1117 hours INDICATIONS: 33 mm right adnexal cystic mass on CT examination December 09, 2024 FINDINGS: Uterus 12.9 cm endometrial stripe 0.1 cm Uterine fundal area of fibroid degeneration 18 x 12 mm Right arm 2.4 cm arterial flow Left ovary 1.8 cm arterial flow No fluid in the cul-de-sac IMPRESSION: Small area of uterine fundal fibroid degeneration 18 x 11 x 12 mm
--- NOTE | 2025-01-30 10:30 | XR_ITS ---
Examination: Abdomen sonogram, Limited Date and time of exam: January 30, 2025 1105 hours INDICATIONS: Epigastric pain months Technique: Real-time head scale transabdominal sonographic images of the upper abdomen obtained. Findings: Absent gallbladder Normal common bile duct 0.4 cm Pancreatic head 2.8 cm Liver 16.7 cm benign liver cysts, the largest in the right lobe of the liver 17 mm Normal hepatopedal portal venous flow Patent IVC IMPRESSION: Small benign liver cysts
--- NOTE | 2025-01-30 11:00 | XR_ITS ---
Examination: Transvaginal ultrasound of the pelvis, complete Technique: Transvaginal sonographic images pelvis performed using head scale imaging Exam date and time: January 30, 2025 1124 hours INDICATIONS: Irregular heavy menses 2 months FINDINGS: Uterus 9.8 cm No uterine mass or intrauterine gestation Ovaries obscured by bowel gas Endometrial stripe 10 mm IMPRESSION: No uterine mass or intrauterine gestation.
--- NOTE | 2025-01-30 11:30 | XR_ITS ---
Examination: Thyroid sonography complete TECHNIQUE: Grayscale sonographic images thyroid lobes with color flow analysis Date and time: January 31, 2020 5:11 AM INDICATIONS: CT chest December 09, 2024 14 mm right thyroid nodule FINDINGS: Right thyroid 5.3 cm Lower pole nodule 21 x 19 mm, 8 x 7 mm Left thyroid 4.8 cm No solid nodules IMPRESSION: Lower pole right thyroid nodules as above Consider ultrasound-guided fine-needle aspiration of the largest vascular nodule lower right lobe of the thyroid
== END | disposition home or self-care (01) ==
PROVIDERS: PCP Nurse Practitioner Family; Referring Provider Nurse Practitioner Family; Visit Provider Nurse Practitioner Family
DX: E04.2 Nontoxic multinodular goiter (principal); K76.89 Other specified diseases of liver; D25.9 Leiomyoma of uterus, unspecified; N94.89 Other specified conditions associated with female genital organs and menstrual cycle
CPT/HCPCS: 76536; 76705; 76830; 76856

== ENCOUNTER → 2025-07-25 | Outpatient (CLI) | payer OTHER, SELFPAY ==
[2025-07-25 10:55] LABS: Ferritin 4 ng/mL (7.3-270.7); Iron 25 mcg/dL (50-170); Percent Iron Saturation 6 % (20-55); Total Iron Binding Capacity 397 mcg/dL (250-425); Unsaturated Iron Binding 372 (225-295)
== END | disposition home or self-care (01) ==
LOC: COPL 09:09
PROVIDERS: PCP Family Medicine; Referring Provider Student in an Organized Health Care Education/Training Program; Visit Provider Student in an Organized Health Care Education/Training Program
DX: Z86.39 Personal history of other endocrine, nutritional and metabolic disease (principal)
CPT/HCPCS: 36415; 82728; 83540; 83550